=== PATIENT | male | born 1990 | race Two or more races ===

== ENCOUNTER 2017-04-15 04:26 | Emergency (ER) | payer SELFPAY ==
[2017-04-15 04:32] VITALS: BP 107/61; PULSE 97; RESP 20; TEMP 97.9; O2SAT 97
--- NOTE | 2017-04-15 05:32 | EDPHY ---
H & P Stated Complaint: R upper tooth pain Time Seen by Provider: 04/15/17 05:06 HPI/ROS: HPI The patient presents with pain of his right upper wisdom tooth which has been present for the last several days. He has a decaying wisdom to use and has not had follow up with a dentist. He is new to the area. The pain is constant, achy, does not radiate, is moderate in severity. REVIEW OF SYSTEMS Constitutional: No fever, no chills. Skin: No rashes. Neurological: No headache. PMHx: Left leg injury Soc Hx: Recently relocated from [place] PHYSICAL General Appearance: Alert, no distress Eyes: Pupils equal and round no pallor or injection ENT, Mouth: Right upper wisdom tooth has caries with some tenderness of the tooth, there is mild erythema along the gum line with no areas of fluctuance. 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 - Social History Smoking Status: Current every day smoker Constitutional: Initial Vital Signs Temperature (C) 36.6 C 04/15/17 04:29 Heart Rate 97 04/15/17 04:29 Respiratory Rate 20 04/15/17 04:29 Blood Pressure 107/61 04/15/17 04:29 O2 Sat (%) 97 04/15/17 04:29 O2 Delivery Mode Room Air Allergies/Adverse Reactions: acetaminophen Allergy (Verified 04/15/17 04:29) Home Medications: Medication Instructions Recorded NK [No Known Home Meds] 04/15/17 Medical Decision Making Differential Diagnosis: This is a 26-year-old male who presents with dental pain related to dental caries of a right upper wisdom tooth. On exam, there is no sign of infection. I have offered him a dental block and he agrees to proceed. Using a 27 gauge needle, 3 mL of bupivacaine 0.5% was injected into the right upper posterior lateral angle of the maxilla with good result. Differential diagnosis includes dental caries, tooth infection, less likely abscess. I have referred him to [facility] for further care. I have put in a referral for case management. Departure - Departure Disposition: Home, Routine, Self-Care Clinical Impression: Pain, dental Condition: Good Instructions: Toothache (ED) Additional Instructions: Please call [facility] for a referral for your tooth pain. Referrals: [facility] [Outside] - As per Instructions
== END 2017-04-15 05:35 | disposition home or self-care (01) ==
PROC: 3E0X3CZ (ICD-10-PCS; principal; 2017-04-15)
DX: K08.89 Other specified disorders of teeth and supporting structures (principal); J45.909 Unspecified asthma, uncomplicated; F17.200 Nicotine dependence, unspecified, uncomplicated